=== PATIENT | female | born 1940 ===

== ENCOUNTER 2024-06-23 05:30 | Emergency (ER) | payer MEDICARE, SELFPAY ==
--- NOTE | 2024-06-23 05:52 | ED.GENMED ---
History of Present Illness
General
Chief Complaint: DOA
Source: ambulance crew
Exam Limitations: clinical condition
Time Seen by Provider: 06/23/24 05:35
Nursing documentation reviewed up to this point in time: agreed with
History of Present Illness
History of Present Illness:
84-year-old female presents to the ER for pronouncement. Per EMS they received a call for respiratory distress and shortly after arrival patient went into a cardiac arrest. Patient was initially listed as a DNR/DNI; prior to discussion with
daughter to confirm she had brief CPR and had ROSC. Daughter wanted her transferred to [place] but did not want further resuscitative efforts due to DNR/DNI status. Unfortunately on the way to the hospital she once again had a cardiac arrest
and was not resuscitated due to DNR/DNI. Per EMS for both cardiac arrest rhythm was PEA, no shockable rhythms. During her initial efforts for resuscitation she received 1 dose of epinephrine. According to EMS on their initial arrival prior to her
arrest her EKG was concerning for anterior ND.
Review of Systems
Review of Systems
All Other Systems: Not applicable
Phy Exam
Physical Exam
Physical Exam:
Upon my entering the room patient is unresponsive, pupils fixed and dilated. She has no palpable carotid or femoral pulses. No cardiac activity auscultated over the precordium. She has no chest rise, no breath sounds. No signs of trauma.
Scores
Heart Failure Risk
Heart Failure Risk Score: Not Applicable
Heart Score for Chest Pain Patients
STEMI patient?: Not applicable
Withdrawal Assessment of Alcohol
Withdrawal Assessment Completed?: Not applicable
Course
Vital Signs
Initial and Last Documented VS:
Initial Vital Signs
Temp
36.5 C
06/23/24 05:32
Last Documented Vital Signs
Temp
36.5 C
06/23/24 05:32
MDM/Problems Addressed
Differential Diagnosis Includes:
Cardiac arrest
MDM/Problems Addressed:
84-year-old female presents to the ER for pronouncement�she had a cardiac arrest en route to the hospital and is a DNR/DNI. I spoke with her daughter on the phone to inform her that patient �daughters on the way to the hospital. Time of
pronouncement 5:30 AM. Will discuss with medical writer.
*Pulse Oximetry
Patient hypoxic: not evaluated
*Critical Care Note
Total Time (30-74mins, 75-104mins- exclusive of procedures): Not Applicable
Data Reviewed
Source: family and ambulance crew
Patient Management
Discussion with other providers: Other (Discussed with ambulance crew)
Escalation/DeEscalation of care consider admission/obs:
ED Attending Note
-
Portions of this chart may have been created with voice recognition software.� Occasional wrong word or��sound alike� substitutions may have occurred due to the inherent limitations of voice recognition software.
Discharge Plan
Departure
Patient Disposition:
Date of Disposition: 06/23/24
Time of Disposition: 05:36
Discharge Problem:
Cardiac arrest
Prescriptions:
No Action
No Current Medications
0
Interventions
Interventions:
*Risk Screen - Suicide Last Done: 06/23/24 05:49
*General Assessment Last Done: 06/23/24 05:49
*Neglect/Abuse Screening Last Done: 06/23/24 05:49
*ED COVID-19 Vaccine History Last Done: 06/23/24 05:49
Discharge Date and Time
Print Language: CROATIAN
Pronouncement of
-
Called to see patient to pronounce.
No spontaneous heart tones or respirations noted.
Patient not responsive to verbal stimuli.
Patient is pronounced .
Time of : 05:30
Date of : 06/23/24
Cause of : cardiac arrest, suspect due to ND
Family Notified: Yes
== END 2024-06-23 08:32 | disposition expired ==
LOC: EMR 05:30
PROVIDERS: EMERGENCY PHYSICIAN Emergency Medicine; FAMILY PHYSICIAN Internal Medicine
DX: I46.9 Cardiac arrest, cause unspecified (principal); Z66 Do not resuscitate
CPT/HCPCS: 99283